=== PATIENT | female | born 1990 | race Two or more races ===

== ENCOUNTER → 2017-08-21 | Emergency (ER) | payer OTHER ==
[~2017-08-21] VITALS: Ht 157.5 cm; Wt 66.7 kg
[~2017-08-21] MED LIST: CIPRO500 MG PO; KETO10TA2 PO
== END | disposition home or self-care (01) ==
LOC: ER 20:25
DX: R10.2 Pelvic and perineal pain (principal); N39.0 Urinary tract infection, site not specified

== ENCOUNTER 2018-03-01 08:55 | Emergency (ER) | payer OTHER ==
[~2018-03-01] VITALS: Ht 165.1 cm; Wt 64.9 kg
== END 2018-03-01 15:00 | disposition home or self-care (01) ==
LOC: ER 08:55
DX: J03.80 Acute tonsillitis due to other specified organisms (principal)